=== PATIENT | male | born 1970 | race Two or more races ===

== ENCOUNTER 2025-01-25 07:38 | Emergency (ER) | payer OTHER ==
[~2025-01-25] VITALS: Ht 185.4 cm; Wt 118.1 kg
[2025-01-25 07:44] VITALS: PULSE 90; RESP 18; O2SAT 98
--- NOTE | 2025-01-25 07:46 | ED.PDOC ---
HPI Comments 54-year-old male presents here with chest discomfort and left arm pain. Patient states last night while he was watching TV began to have onset of this discomfort which he reports as tightness. He states he went to bed and woke up with the pain being worse this morning. Patient was significant arm pain that is tight and tingling. Denies any nausea. Does report positive recent cold with some sinus congestion. Denies any shortness of breath. No current fever or chills. No diarrhea no vomiting Time Seen by MD: 07:44 Allergies: Coded Allergies: NO KNOWN ALLERGIES (Unverified , 01/25/25) Past Medical History PAST MEDICAL HISTORY: HTN Surgical History (Other): Right femur repair 3 years ago Family History Family History: Reviewed,noncontributory to illness Social History Smoker: Cigarettes Alcohol: Denies ETOH Use Drugs: Denies Drug Use All Other Systems: Reviewed and Negative Physical Exam General Appearance: No Apparent Distress, Normal HEENT: Normal ENT Inspection, Pharynx Normal, TMs Normal Neck: Full Range of Motion, Non-Tender, Normal, Normal Inspection Respiratory: Chest Non-Tender, Lungs Clear, No Accessory Muscle Use, No Respiratory Distress, Normal Breath Sounds Cardiovascular: No Edema, Normal Peripheral Pulses, Regular Rate/Rhythm Breast Exam: Deferred Gastrointestinal: No Organomegaly, Non Tender, Soft Genitalia: Deferred Pelvic: Deferred Rectal: Deferred Extremities: No calf tenderness, Normal capillary refill, Normal inspection, Normal range of motion, Non-tender, No pedal edema Musculoskeletal : Apperance: Normal Neurologic: Alert, dye worker II-XII nml as Tested, No Motor Deficits, Normal Affect, Normal Mood, No Sensory Deficits Cerebellar Function: Normal Reflexes: Normal Skin: Dry, Normal Color, Warm Lymphatic: No Adenopathy EKG EKG #1: Comments 7:41 a.m. Rate of 95 sinus rhythm no significant ST changes EKG #2: Comments 7:58 a.m. rate of 84 sinus rhythm mild elevation in aVL and V2. Inverted T- waves in 3 and AVF EKG #3: Comments EKG 3. At 9:25 a.m., rate of 76 sinus rhythm no significant ST changes no ST-elevation visualized. Was a procedure done? Was a procedure done?: No CP Differential Dx Differential Diagnosis: Other Differential Diagnosis: Other Differential Diagnosis: Angina, Aortic dissection, Cholelithiasis, Myocardial Infarction, Pneumonia, Pneumothorax, Pulmonary Embolus X-Ray, Labs, Meds, VS Vital Signs Date Time Temp Pulse Resp B/P (MAP) Pulse Ox O2 Delivery O2 Flow Rate FiO2 01/25/25 16:47 91 12 158/97 01/25/25 16:19 98.5 80 12 150/106 (121) 96 98.5 01/25/25 16:17 84 12 160/106 01/25/25 16:00 80 01/25/25 14:44 79 15 156/104 (121) 97 01/25/25 14:38 80 19 159/105 (123) 94 01/25/25 13:41 176/113 01/25/25 12:58 82 15 168/108 01/25/25 12:57 181/123 01/25/25 12:28 95 19 172/124 01/25/25 12:00 85 01/25/25 11:42 80 18 94 Room Air* 0 21 01/25/25 11:42 98.1 80 20 168/117 (134) 94 98.1 01/25/25 11:01 142/113 01/25/25 10:00 77 13 149/113 (125) 98 01/25/25 09:30 152/105 01/25/25 09:29 76 01/25/25 09:07 79 14 152/105 01/25/25 08:30 75 18 158/110 01/25/25 08:29 158/110 01/25/25 08:00 84 01/25/25 08:00 89 01/25/25 07:44 90 18 98 Room Air* 0 21 01/25/25 07:44 97.9 90 18 153/104 (120) 98 97.9 01/25/25 07:43 95 01/25/25 07:39 97.9 81 18 158/124 98 97.9 Lab Test 01/25/25 11:51 01/25/25 10:00 01/25/25 08:06 Range/Units Troponin I High Sensitivity 4 4 3 L </=54 ng/L White Blood Count 5.5 4.4-10.8 10^3/uL Red Blood Count 5.53 4.5-5.90 10^6/uL Hemoglobin 15.1 13.5-17.5 g/dL Hematocrit 44.9 41.0-53.0 % Mean Corpuscular Volume 81.1 80.0-100.0 fL Mean Corpuscular Hemoglobin 27.4 L 28.0-32.0 pg Mean Corpuscular Hemoglobin Concent 33.7 32.0-36.0 g/dL Red Cell Distribution Width 16.6 H 11.8-14.3 % Platelet Count 268 140-450 10^3/uL Mean Platelet Volume 8.6 6.9-10.8 fL Neutrophils (%) (Auto) 49.3 37.0-80.0 % Lymphocytes (%) (Auto) 43.2 10.0-50.0 % Monocytes (%) (Auto) 5.6 0.0-12.0 % Eosinophils (%) (Auto) 1.3 0.0-7.0 % Basophils (%) (Auto) 0.6 0.0-2.0 % Neutrophils # (Auto) 2.7 1.6-8.6 10 ^3/uL Lymphocytes # (Auto) 2.4 0.4-5.4 10 ^3/uL Monocytes # (Auto) 0.3 0-1.3 10 ^3/uL Eosinophils # (Auto) 0.1 0-0.8 10 ^3/uL Basophils # (Auto) 0 0-0.2 10 ^3/uL Nucleated Red Blood Cells 0.3 % Sodium Level 137 136-145 mmol/L Potassium Level 3.9 3.5-5.1 mmol/L Chloride Level 104 98-107 mmol/L Carbon Dioxide Level 26 20-31 mmol/L Anion Gap 7 5-15 Blood Urea Nitrogen 10 9-23 mg/dL Creatinine 1.30 0.700-1.30 mg/dL Glomerular Filtration Rate Calc 65 >90 mL/min BUN/Creatinine Ratio 7.7 L 10.0-20.0 Serum Glucose 110 H 74-106 mg/dL POC Glucose 119 H 70-106 mg/dl Calcium Level 10.1 8.7-10.4 mg/dL Current Medications Medications (Trade) Dose Ordered Sig/Jacinda Route Start Time Stop Time Status Last Admin Morphine Sulfate 4 mg ONCE ONCE IV 01/25/25 08:00 01/25/25 08:01 DC 01/25/25 08:30 Nitroglycerin (Nitro-Bid) 1 pkg ONCE ONCE TD 01/25/25 08:00 01/25/25 08:01 DC 01/25/25 08:29 Aspirin 325 mg ONCE ONCE PO 01/25/25 08:00 01/25/25 08:01 DC 01/25/25 08:29 Hydralazine HCl (Apresoline Injection) 5 mg ONCE ONCE IV 01/25/25 10:45 01/25/25 10:46 DC 01/25/25 11:01 Morphine Sulfate 4 mg ONCE ONCE IV 01/25/25 11:45 01/25/25 11:46 DC 01/25/25 12:28 Ondansetron HCl (Zofran) 4 mg ONCE ONCE IV 01/25/25 11:45 01/25/25 11:46 DC 01/25/25 12:26 Amlodipine Besylate (Norvasc Tablet) 10 mg DAILY ONCE PO 01/25/25 12:45 01/25/25 12:47 DC 01/25/25 12:57 Lisinopril (Zestril Tablet) 10 mg DAILY PO 01/25/25 12:45 01/25/25 13:41 Morphine Sulfate 4 mg ONCE ONCE IV 01/25/25 16:15 01/25/25 16:16 DC 01/25/25 16:17 Ondansetron HCl (Zofran) 4 mg ONCE ONCE IV 01/25/25 16:15 01/25/25 16:16 DC 01/25/25 16:17 54-year-old male presents here with chest discomfort and tightness. Patient has a known smoker history of hypertension. Blood pressure is significantly elevated today at 163/107. I was asked to see the patient immediately upon his arrival as there is concern for possible STEMI. First EKG demonstrates no significant ST elevation. However repeat EKG demonstrates mild elevation in lateral leads however still does not seem consistent with STEMI. Time patient has been given morphine nitroglycerin and aspirin. A CBC, CMP, troponin chest x-ray have been ordered. Ekg x3 has been done and reviewed by myself with no evidence of STEMI. At this time CBC CMP troponin have returned which are largely unremarkable except for mild elevation in creatinine of 1.3. Troponin x3 has been negative. Patient has been given morphine and nitroglycerin several times while in the ER. Patient has also had a high blood pressure initially was given hydralazine IV and also has been given his normal daily medications including amlodipine and lisinopril. While in the ER although patient has a appeared comfortable he has complained of chest discomfort multiple times. Considered possible aortic dissection also. A CT of the chest with contrast was performed with no evidence of dissection. I did speak to [facility] ALESSANDRO I spoke to Dr. White with authorization [id number]. At this time patient has been accepted by [facility] and will be transferred to [facility]. Patient is stable for transfer. Time of 1ST Reevaluation: 08:09 Reevaluation 1ST: Unchanged Time of 2ND Reevaluation: 11:13 Reevaluation 2ND: Improved Patient Education/Counseling: Diagnosis, Treatment Family Education/Counseling: No Family Present SEPSIS Sepsis Screen Physician Orders Electrocardigram (01/25/25 09:15) Chest Xray 1 View (01/25/25 09:52) Lisinopril Tablet (Zestril Tablet) (01/25/25 12:45) Imaging Transfer Request (01/25/25 13:12) Ct Angio Chest Contrast (01/25/25 16:09) Imaging Transfer Request (01/25/25 16:52) Vital Signs Date Time Temp Pulse Resp B/P (MAP) Pulse Ox O2 Delivery O2 Flow Rate FiO2 01/25/25 16:47 91 12 158/97 01/25/25 16:19 98.5 80 12 150/106 (121) 96 98.5 01/25/25 16:17 84 12 160/106 01/25/25 16:00 80 01/25/25 14:44 79 15 156/104 (121) 97 01/25/25 14:38 80 19 159/105 (123) 94 01/25/25 13:41 176/113 01/25/25 12:58 82 15 168/108 01/25/25 12:57 181/123 01/25/25 12:28 95 19 172/124 01/25/25 12:00 85 01/25/25 11:42 80 18 94 Room Air* 0 21 01/25/25 11:42 98.1 80 20 168/117 (134) 94 98.1 01/25/25 11:01 142/113 01/25/25 10:00 77 13 149/113 (125) 98 01/25/25 09:30 152/105 01/25/25 09:29 76 01/25/25 09:07 79 14 152/105 01/25/25 08:30 75 18 158/110 01/25/25 08:29 158/110 01/25/25 08:00 84 01/25/25 08:00 89 01/25/25 07:44 90 18 98 Room Air* 0 21 01/25/25 07:44 97.9 90 18 153/104 (120) 98 97.9 01/25/25 07:43 95 01/25/25 07:39 97.9 81 18 158/124 98 97.9 Laboratory Tests Test 01/25/25 08:06 White Blood Count 5.5 10^3/uL (4.4-10.8) Medications Medications Dose Ordered Sig/Jacinda Route Start Time Stop Time Status Last Admin Dose Admin Amlodipine Besylate 10 mg DAILY ONCE PO 01/25/25 12:45 01/25/25 12:47 DC 01/25/25 12:57 Aspirin 325 mg ONCE ONCE PO 01/25/25 08:00 01/25/25 08:01 DC 01/25/25 08:29 Hydralazine HCl 5 mg ONCE ONCE IV 01/25/25 10:45 01/25/25 10:46 DC 01/25/25 11:01 Lisinopril 10 mg DAILY PO 01/25/25 12:45 01/25/25 13:41 Morphine Sulfate 4 mg ONCE ONCE IV 01/25/25 08:00 01/25/25 08:01 DC 01/25/25 08:30 Morphine Sulfate 4 mg ONCE ONCE IV 01/25/25 11:45 01/25/25 11:46 DC 01/25/25 12:28 Morphine Sulfate 4 mg ONCE ONCE IV 01/25/25 16:15 01/25/25 16:16 DC 01/25/25 16:17 Nitroglycerin 1 pkg ONCE ONCE TD 01/25/25 08:00 01/25/25 08:01 DC 01/25/25 08:29 Ondansetron HCl 4 mg ONCE ONCE IV 01/25/25 11:45 01/25/25 11:46 DC 01/25/25 12:26 Ondansetron HCl 4 mg ONCE ONCE IV 01/25/25 16:15 01/25/25 16:16 DC 01/25/25 16:17 Departure 1 Departure Time of Disposition: 08:13 Impression: Primary Impression: Chest pain Qualified Codes: R07.9 - Chest pain, unspecified Disposition: 09 ADMITTED INPATIENT Condition: Fair Critical Care Note Critical Care Time?: Yes (35 min-critical care time only) Critical care comment: Multiple EKG evaluations, multiple re-evaluations of the patient, speaking to [facility] physician, reviewing CT results, lab results, troponin repeat troponins Stability Stability form required: No Heart Score Heart Score: Heart Score Response (Comments) Value History Highly Suspicious 2 EKG Repolarization Disturb 1 Age 45-64 1 Risk Factors >3 or Hx ASHD 2 Troponin Normal limit 0 Total 6 JT BRYAN MD Jan 25, 2025 07:45
--- NOTE | 2025-01-25 08:21 | ECG ---
[facility] Test Date: 2025-01-25 Test Time: 07:41:34 Pat Name: KARLY VILLALOBOS Department: ED Room: Gender: M Hyperbaric Technician: ANGELICA : 1970 Requested By: JT BRYAN Order Number: [id number] Reading MD: Diogenes Epps Measurements Intervals [place] Rate: 95 P: 67 DE: 149 QRS: 23 QRSD: 88 T: 0 QT: 341 QTc: 429 Interpretive Statements Sinus rhythm Abnormal R-wave progression, late transition Electronically Signed On 01-31-2025 18:56:01 PST by Diogenes Epps Please click the below link to view image of tracing.
--- NOTE | 2025-01-25 08:21 | ECG ---
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
[2025-01-25] MEDS: NITROGLYCERIN 2% OINT 1GM PKG TD ONE (08:29)
[2025-01-25] MEDS: MORPHINE SULFATE 4 MG/ML SYR/VIAL IV ONE ×3 (08:30→16:17)
[2025-01-25 08:36] LABS: Chloride 104 mmol/L (98-107); Potassium 3.9 mmol/L (3.5-5.1); Sodium 137 mmol/L (136-145)
[2025-01-25 08:37] LABS: Anion Gap 7 (5-15); Carbon Dioxide 26 mmol/L (20-31)
[2025-01-25 08:38] LABS: Calcium 10.1 mg/dL (8.7-10.4)
[2025-01-25 08:43] LABS: BUN/Creatinine Ratio 7.7 (10.0-20.0); Blood Urea Nitrogen 10 mg/dL (9-23); Glucose 110 mg/dL (74-106)
[2025-01-25 08:48] LABS: Hemoglobin 15.1 g/dL (13.5-17.5)
[2025-01-25 08:49] LABS: Hematocrit 44.9 % (41.0-53.0); Mean Corpuscular Hemoglobin 27.4 pg (28.0-32.0); Mean Corpuscular Volume 81.1 fL (80.0-100.0); Nucleated Red Blood Cells % 0.3 %
--- NOTE | 2025-01-25 09:42 | ECG ---
[facility] Test Date: 2025-01-25 Test Time: 09:25:47 Pat Name: KRALY VILLALOBOS Department: ED Room: Gender: M Medical Charge Entry Specialist: ANGELICA : 1970 Requested By: JT BRYAN Order Number: [id number] Reading MD: Diogenes Epps Measurements Intervals [place] Rate: 76 P: 57 MA: 155 QRS: -23 QRSD: 90 T: 6 QT: 388 QTc: 437 Interpretive Statements Sinus rhythm Probable left atrial enlargement Borderline left axis deviation Abnormal R-wave progression, late transition Electronically Signed On 01-31-2025 18:56:16 PST by Diogenes Epps Please click the below link to view image of tracing.
--- NOTE | 2025-01-25 10:32 | DVH ---
CHEST RADIOGRAPH Indication: CHEST PAIN Technique: Single frontal view of the chest was obtained Comparison: None FINDINGS: Lines and Tubes: None Lungs: No focal consolidation. Pleura: No effusion. No pneumothorax. Cardiomediastinal contours: Unremarkable Bones: No acute osseous abnormality. IMPRESSION: No acute cardiopulmonary disease.
[2025-01-25] MEDS: hydrALAZINE HCL 20 MG/ML VL IV ONE (11:01)
[2025-01-25 11:42] VITALS: PULSE 80; RESP 18; O2SAT 94
[2025-01-25] MEDS: ONDANSETRON HCL 4 MG/2 ML VIAL IV ONE ×2 (12:26→16:17)
[2025-01-25] MEDS ORDERED: LISINOPRIL 5 MG TAB PO SCH (12:45)
[2025-01-25] MEDS: LISINOPRIL 5 MG TAB PO SCH (13:41)
[2025-01-25 16:19] VITALS: TEMP 98.5; O2SAT 96
[2025-01-25] MEDS: IOHEXOL 350 MG/ML 100ML IJ ONE (16:39)
[2025-01-25 16:47] VITALS: BP 158/97; PULSE 91; RESP 12
--- NOTE | 2025-01-25 17:10 | DVH ---
EXAM: CT CT ANGIO CHEST CONTRAST HISTORY: ro dissection TECHNIQUE: CT angiogram was performed following uncomplicated administration of intravenous contrast. Sagittal and coronal reformatted images as well as maximum intensity projection images and 3D volume renderings were generated and evaluated. Coronal and sagittal reformations and maximum intensity projection images were created from the transaxial source data by the geospatial technologist and workstation, as well as 3-D volume rendered images. COMPARISON: XY CHEST XRAY 1 VIEW on DOS: 01/25/25 [VASCULAR FINDINGS]: [THORACIC AORTA]: Normal caliber [ABDOMINAL AORTA]: Normal caliber [CELIAC]: Patent [SMA]: Patent [SARA]: Patent [RENALS]: Patent [ILIACS]: Patent [FEMORALS]: Patent [PULMONARY ARTERIES]: No pulmonary arterial filling defect. Normal caliber of the main pulmonary artery. No evidence of elevated right heart pressures. [CARDIOVASCULAR]: Normal cardiac size. No pericardial effusion. No aneurysmal dilatation of the great vessels. No significant coronary artery calcifications. NON-VASCULAR FINDINGS: [LOWER NECK]: Superior most portion of the chest is outside of the field of view. [LYMPH NODES/MEDIASTINUM]: No abnormal lymph nodes by CT size criteria [LUNG PARENCHYMA/PLEURAL SPACE]: No consolidation, suspicious focal airspace opacity, or suspicious nodules. No pleural effusion or pneumothorax. [CHEST WALL]: [id number] bilateral gynecomastia minimal possible stranding along the margin of the left adrenal gland. [LIVER]: Normal hepatic size without suspicious focal lesion. [SPLEEN]: Unremarkable. [PANCREAS]: Unremarkable. [GALLBLADDER AND BILIARY TREE]: No cholelithiasis. No biliary dilatation. [ADRENAL GLANDS]: Unremarkable [KIDNEYS]: No hydronephrosis. No nephroureterolithiasis. No suspicious focal lesion. [BLADDER]: Unremarkable for the degree distention. [PELVIC ORGANS]: Unremarkable. [BOWEL/MESENTERY]: Stomach is normal. No CT evidence of bowel obstruction. Appendix is normal. [ASCITES]: Absent [LYMPHADENOPATHY]: No pathologically enlarged lymph nodes by CT size criteria [VASCULATURE]: Vascular calcifications. [ABDOMINAL WALL]: Unremarkable. [MUSCULOSKELETAL]: No acute fracture or aggressive focal osseous lesion. Multifocal degenerative change of the visualized spine. Exaggerated lumbar lordosis. IMPRESSION: 1. No CTA evidence of an acute pulmonary embolism or aortic dissection
== END 2025-01-25 16:28 | disposition short-term general hospital (02) ==
LOC: EDBD 07:38 → ER 07:38
DX: R07.89 Other chest pain (principal); F17.210 Nicotine dependence, cigarettes, uncomplicated; I10 Essential (primary) hypertension; Z79.899 Other long term (current) drug therapy
CPT/HCPCS: 36415; 71045; 71275; 80048; 82947; 84484; 85025; 93005; 96374; 96375; 96376; 99285; J0360; J2270; J2405; Q9967; 82962; 99291